=== PATIENT | male | born 1975 | race Caucasian/White ===

== ENCOUNTER 2016-09-25 19:02 | Emergency (ER) | payer BC ==
[2016-09-25 19:40] LABS: HEMOGLOBIN 16.2 gm/dl (14.0-17.5); RED BLOOD COUNT 5.05 M/UL (4.20-5.50); WHITE BLOOD COUNT 16.6 K/UL (4.5-11.0)
[2016-09-25 20:01] LABS: BUN/CREATININE RATIO 12 (0-10)
== END 2016-09-25 21:45 | disposition home or self-care (01) ==
LOC: ER1 19:02
PROVIDERS: Family Medicine
DX: R09.1 Pleurisy (principal); R11.10 Vomiting, unspecified; M06.9 Rheumatoid arthritis, unspecified; F17.210 Nicotine dependence, cigarettes, uncomplicated; Z91.013 Allergy to seafood; Z90.89 Acquired absence of other organs; Z90.49 Acquired absence of other specified parts of digestive tract; Z79.899 Other long term (current) drug therapy
CPT/HCPCS: 36415; 71020; 80053; 82550; 82553; 83874; 84484; 85025; 85379; 93005; 96361; 96374; 96375; 99285; J1885; J2060; J2550; J7050; J7120

== ENCOUNTER → 2022-03-14 | Day surgery (SDC) | payer BC ==
[~2022-03-14] MED LIST: ACCUPRIL 20 MG20 MG PO; BENADRYL 50MG C50 MG PO; CIMZIA400 MG/2 M SQ; COLCHICINE0.6 MG PO; FEBUXOSTAT80 MG PO; INDOCIN 50 MG C50 MG PO; LODINE CAP 300300 MG PO; METHOTREXATE T2.5 MG PO; PEPCID20 MG PO; PREDNISONE10 MG PO; PREDNISONE20 MG PO; PREDNISONE50 MG PO; ZOFRAN ODT 4 MG4 MG SL
== END | disposition home or self-care (01) ==
LOC: OR 07:30
DX: Z12.11 Encounter for screening for malignant neoplasm of colon (principal); D12.5 Benign neoplasm of sigmoid colon; N40.0 Benign prostatic hyperplasia without lower urinary tract symptoms; K57.30 Diverticulosis of large intestine without perforation or abscess without bleeding; I10 Essential (primary) hypertension; M06.9 Rheumatoid arthritis, unspecified; Z91.013 Allergy to seafood; Z86.16 Personal history of COVID-19
CPT/HCPCS: J2250; J2704